=== PATIENT | female | born 1980 | race Hispanic/Latino ===

== ENCOUNTER → 2018-01-28 | Day surgery (SDC) | payer OTHER ==
[2011-11-09 14:04] VITALS: BP 97/53
--- NOTE | 2018-01-28 11:31 | RAD REPORT ---
EXAM DESCRIPTION: US - Breast Core BX w/US Guidance - 01/28/2018 11:01 am CLINICAL HISTORY: ^N63.10 COMPARISON: Mammogram and ultrasound studies January 22, 2018 TECHNIQUE: The patient presents for ultrasound-guided biopsy of a previously detailed 12 mm mass in the 3 o'clock lateral left breast. The ultrasound-guided core biopsy procedure, risks and alternatives were discussed with the patient i n detail. After answering all questions, both oral and written consent were obtained. Time out proced ure was performed. The patient had no contraindicated allergy or medication history. Preliminary imaging identified the 12 mm left breast mass. The anterior breast was prepped and draped in the usual sterile fashion. From a lateral approach, skin and deeper tissues were anesthetized wit h 1% lidocaine. Under direct sonographic visualization a 14 gauge vacuum assisted core biopsy needle was advanced and placed at the lateral margin of the mass. There were 2 core biopsies obtained of the mass. Post biopsy images demonstrated the needle tracking through the substance of the mass. At the conclusion of the procedure a localization clip was placed under sonographic guidance. Post biopsy imaging showed no hematoma or measurable bleeding within the breast. Hemostasis was obtai abimbola at the skin site with a sterile bandage placed. Post procedure care and precaution instructions were given to the patient. IMPRESSION: 1. Ultrasound-guided core biopsy was performed of the left breast outer mass. All obtain ed material was given to pathology for histologic assessment. 2. Post biopsy localization clip was placed under ultrasound guidance.
== END ==
LOC: DS 09:34
PROVIDERS: ATTEND Obstetrics & Gynecology
PROC: 0HBU3ZX Excision of Left Breast, Percutaneous Approach, Diagnostic (ICD-10-PCS; principal; 2018-01-28)
DX: D24.2 Benign neoplasm of left breast (principal)
CPT/HCPCS: 19083; 88305